=== PATIENT | male | born 2000 | race Two or more races ===

== ENCOUNTER 2021-06-11 16:20 | Emergency (ER) | payer OTHER ==
[~2021-06-11] VITALS: Ht 170.2 cm; Wt 77.3 kg
[2021-06-11 16:49] VITALS: BP 144/69
[2021-06-11] MEDS ORDERED: diphenhydrAMINE 50 mg/ml inj IV ONE (18:15)
[2021-06-11] MEDS ORDERED: normal saline 1000ML IV soln IVB ONE (18:15)
[2021-06-11] MEDS ORDERED: proCHLORperazine 10 MG/2 ml inj IV ONE (18:15)
[2021-06-11] MEDS ORDERED: LORazepam 2 mg/ml vial IV ONE (18:40)
[2021-06-11] MEDS ORDERED: diazepam 5mg tablet PO ONE (18:40)
== END 2021-06-11 20:54 | disposition home or self-care (01) ==
LOC: ER 16:21
DX: G43.909 Migraine, unspecified, not intractable, without status migrainosus (principal); R42 Dizziness and giddiness; R04.0 Epistaxis; R11.0 Nausea; Z88.0 Allergy status to penicillin
CPT/HCPCS: 96361; 96374; 96375; 99284; J0780; J1200; J7030

== ENCOUNTER 2021-08-31 19:42 | Emergency (ER) | payer OTHER, BC ==
[~2021-08-31] VITALS: Ht 167.6 cm; Wt 75.0 kg
[2021-08-31 20:20] VITALS: BP 120/78
[2021-08-31] MEDS ORDERED: LIDOcaine/PRILOcaine 5gm cream TP ONE (20:25)
[2021-08-31] MEDS ORDERED: bacitracin 15gm ointment TP ONE (20:25)
== END 2021-08-31 20:30 | disposition home or self-care (01) ==
LOC: ER 19:43
DX: T14.8XXA Other injury of unspecified body region, initial encounter (principal); G43.909 Migraine, unspecified, not intractable, without status migrainosus; Z88.0 Allergy status to penicillin; V28.9XXA Unspecified motorcycle rider injured in noncollision transport accident in traffic accident, initial encounter; Y93.89 Activity, other specified; Y92.89 Other specified places as the place of occurrence of the external cause; Y99.8 Other external cause status
CPT/HCPCS: 99284; A6258; A6446

== ENCOUNTER 2024-01-21 13:33 | Emergency (ER) | payer BC, OTHER ==
[~2024-01-21] VITALS: Ht 170.2 cm; Wt 85.3 kg
[2024-01-21 14:27] LABS: BILIRUBIN,URINE NEGATIVE (Neg); CLARITY,URINE CLEAR (Clear); COLOR,URINE YELLOW (Yellow); GLUCOSE, URINE NEGATIVE (Neg); KETONES,URINE NEGATIVE (Neg); LEUKOCYTE ESTERASE ,URINE NEGATIVE (Neg); NITRITES, URINE NEGATIVE (Neg); OCCULT BLOOD,URINE SMALL (Neg); PROTEIN,URINE NEGATIVE (Neg); UA COLLECTION TYPE CLN CATCH MIDSTREAM; UROBILINOGEN,URINE 0.2 E.U/dL (0.2-1.0)
[2024-01-21 14:32] LABS: MUCUS STRANDS FEW /LPF (Neg); SQUAMOUS EPITHELIAL CELL,UR NONE SEEN /LPF (FEW); WBC,URINE NONE SEEN /HPF (0-4)
[2024-01-21 14:33] LABS: BACTERIA,URINE FEW /HPF (Neg)
[2024-01-21 15:06] VITALS: TEMP 98.5
[2024-01-21 16:15] VITALS: BP 126/89; PULSE 103; RESP 16; O2SAT 98
[2024-01-21 16:21] LABS: URINE AMPHETAMINE SCREEN NEGATIVE (Neg); URINE BARBITUATE SCREEN NEGATIVE (Neg); URINE BENZODIAZEPINES SCREEN NEGATIVE (Neg); URINE CANNABINOID SCREEN NEGATIVE (Neg); URINE COCAINE SCREEN NEGATIVE (Neg); URINE METHADONE SCREEN NEGATIVE (Neg); URINE OPIATE SCREEN NEGATIVE (Neg); URINE PHENCYCLIDINE SCREEN NEGATIVE (Neg)
== END 2024-01-21 16:20 | disposition home or self-care (01) ==
LOC: ER 13:34
DX: N43.3 Hydrocele, unspecified (principal); N50.811 Right testicular pain; G43.909 Migraine, unspecified, not intractable, without status migrainosus; R07.89 Other chest pain; Z88.0 Allergy status to penicillin
CPT/HCPCS: 36415; 76870; 80305; 81001; 86592; 87491; 93005; 99284